=== PATIENT | male | born 1945 | race Caucasian/White ===

== ENCOUNTER → 2023-10-01 | Outpatient (REF) | payer MEDICARE ==
[2023-10-01 18:58] LABS: PERCENT SATURATION 4.3 % (19.7-50.0)
[2023-10-01 19:00] LABS: FERRITIN 8.4 NG/ML (10.5-307.3)
== END ==
LOC: M LAB REF 17:00
PROVIDERS: ATTEND Internal Medicine Nephrology
DX: E61.1 Iron deficiency (principal); D63.1 Anemia in chronic kidney disease; N18.9 Chronic kidney disease, unspecified

== ENCOUNTER → 2024-01-07 | Outpatient (REF) | payer MEDICARE ==
[2024-01-07 18:36] LABS: TOTAL PROTEIN,RANDOM URINE 8.5 MG/DL (0.0-14.0)
[2024-01-07 18:41] LABS: CREATININE,RANDOM URINE 113.1 MG/DL
[2024-01-07 18:42] LABS: FERRITIN 21.1 NG/ML (10.5-307.3)
[2024-01-07 18:44] LABS: PERCENT SATURATION 17.5 % (19.7-50.0)
== END ==
LOC: M LAB REF 17:14
PROVIDERS: ATTEND Internal Medicine Nephrology
DX: N18.31 Chronic kidney disease, stage 3a (principal); E61.1 Iron deficiency

== ENCOUNTER → 2024-01-22 | Outpatient (CLI) | payer MEDICARE ==
[~2024-01-22] VITALS: Ht 152.4 cm; Wt 108.6 kg
[~2024-01-22] MED LIST: ALBUTEROL SULFATE 2.5MG/0.5ML INH NEB SOLN INH PRN; BISO5TAB14 PO; EPINEPHrine INJ 1 MG/ML 1ML AMP IM PRN; FLEC50HA PO; HYDR-3490 PO; NS 1,000 ML IV SCH; ROSU20TA61 PO; XARE10TA PO; diphenhydrAMINE 50MG/ML VIAL IV PRN; methylPREDNISolone 125MG 2ML VIAL IV PRN
[2024-01-22 08:00] VITALS: BP 136/63; O2SAT 92
[2024-01-22] MEDS: IRON SUCROSE 300 MG in NS 250 ML OVER 90 MIN. IV ONE (08:30)
[2024-01-22 10:05] VITALS: BP 151/68; O2SAT 97
== END ==
LOC: M INFU 07:39
PROVIDERS: ATTEND Internal Medicine Nephrology
DX: E61.1 Iron deficiency (principal)
CPT/HCPCS: 96365; J1756

== ENCOUNTER → 2024-02-05 | Outpatient (CLI) | payer MEDICARE ==
[~2024-02-05] VITALS: Ht 170.2 cm; Wt 107.0 kg
[2024-02-05 08:26] VITALS: BP 118/61; O2SAT 96
[2024-02-05] MEDS: IRON SUCROSE 300 MG in NS 250 ML OVER 90 MIN. IV ONE (08:47)
[2024-02-05 10:23] VITALS: BP 132/68; O2SAT 95
== END ==
LOC: M INFU 08:20
PROVIDERS: ATTEND Internal Medicine Nephrology
DX: E61.1 Iron deficiency (principal)
CPT/HCPCS: 96365; 96366; J1756

== ENCOUNTER 2024-02-19 08:05 | Outpatient (CLI) | payer MEDICARE ==
[~2024-02-19] VITALS: Ht 170.2 cm; Wt 106.0 kg
[2024-02-19] MEDS: IRON SUCROSE 300 MG in NS 250 ML OVER 90 MIN. IV ONE (08:38)
[2024-02-19 08:41] VITALS: BP 160/80; O2SAT 96
[2024-02-19 10:13] VITALS: BP 156/70; O2SAT 96
== END 2024-02-19 10:15 ==
LOC: M INFU 08:05
PROVIDERS: ATTEND Internal Medicine Nephrology
DX: E61.1 Iron deficiency (principal)
CPT/HCPCS: 96365; 96366; J1756

== ENCOUNTER → 2025-06-28 | Outpatient (CLI) | payer MEDICARE ==
[~2025-06-28] MED LIST changes: -ALBUTEROL SULFATE 2.5MG/0.5ML INH NEB SOLN INH PRN; -EPINEPHrine INJ 1 MG/ML 1ML AMP IM PRN; +LISI20TA35; +METO1TAB87; -NS 1,000 ML IV SCH; -ROSU20TA61 PO; +ROSU20TA86 PO; +ROSU5TAB49; +XARE20TA; -diphenhydrAMINE 50MG/ML VIAL IV PRN; -methylPREDNISolone 125MG 2ML VIAL IV PRN
== END ==
LOC: M PLAIMG 10:30
PROVIDERS: ATTEND Surgery
DX: C34.32 Malignant neoplasm of lower lobe, left bronchus or lung (principal); Z90.2 Acquired absence of lung [part of]